=== PATIENT | female | born 1970 | race Caucasian/White ===

== ENCOUNTER 2017-11-12 04:18 | Inpatient (IN) | payer BC, SELFPAY ==
[2017-11-12] MEDS ORDERED: Morphine 4 MG/ML VIAL ONE (05:00)
[2017-11-12] MEDS ORDERED: Ondansetron HCl/PF 4 MG/2 ML Vial ONE (05:00)
[2017-11-12 06:00] VITALS: BMI 38.0
[2017-11-12] MEDS ORDERED: Clindamycin/D5W 600 MG in Premix Bag 1 BAG IVPB SCH (07:00)
[2017-11-12] MEDS ORDERED: Dextrose 5 % And 0.9 % NaCl 1,000 ML IV SCH (07:00)
[2017-11-12] MEDS ORDERED: Acetaminophen 325 MG TAB PO PRN (07:10)
[2017-11-12] MEDS ORDERED: Senokot 8.6 MG TAB PO PRN (07:10)
[2017-11-12] MEDS ORDERED: Ondansetron HCl/PF 4 MG/2 ML Vial IVP PRN (07:10)
[2017-11-12] MEDS ORDERED: Ondansetron ODT 4 MG TAB PO PRN (07:10)
[2017-11-12] MEDS ORDERED: Lidocaine 1% w/Epinephrine 1:100K 20 ML VIAL FS SCH (08:15)
[2017-11-12] MEDS: Saccharomyces boulardii 250 MG CAP PO SCH (08:50)
[2017-11-12] MEDS: Ketorolac Tromethamine 30 MG/ML VIAL IVP PRN ×2 (11:18→17:53)
[2017-11-12] MEDS ORDERED: Mag-Al 1200 mg/1200 mg/30 ML UDCUP PO PRN (12:21)
[2017-11-12] MEDS ORDERED: Calcium Carbonate 500 MG ChewTAB PO PRN (12:21)
[2017-11-12] MEDS ORDERED: Labetalol HCl 100 MG/20 ML VIAL SLOW IVP PRN (12:23)
[2017-11-12] MEDS ORDERED: Vancomycin HCl 1 GM in Premix Bag 1 BAG IVPB SCH (12:30)
--- NOTE | 2017-11-12 12:38 | HP ---
PRIMARY CARE PHYSICIAN: Dr. Laila Barakat in [place]. CHIEF COMPLAINT: Swelling around the chin area of 4 days' duration. HISTORY OF PRESENT ILLNESS: The patient is a 47-year-old female who presented to the emergency room at [facility] with swelling around her chin that has been ongoing for last 4 days a long with redness, warmth and pain. She states that it started after a possible insect bite. The pa in is moderate to severe in intensity, associated with palpation and tubing. She denies any toothach e or any recent dental issues. She felt feverish; however, denies any chills. In the emergency room at [place] her initial vital signs showed temperature 99.1 with a heart rate of 86, blood pressure 153/79 with O2 saturation 99%. Her pain was 10/10 in the emergency room. WBC was 12.7 with 68% neutrophils. She underwent CT maxillofacial with IV contrast that showed evidence of submental and premental cellulitis without any abscess or foreign body. She was transferred to [facility] facility for hospital admission. The patient was evaluated by her primary care physician and was started on Bactrim without any improv ement. The patient also had some nausea and mild generalized headache without any significant photophobia or phonophobia. PAST MEDICAL HISTORY: 1. Mild intermittent asthma. 2. Hiatal hernia. 3. Gastroesophageal reflux disease. PAST SURGICAL HISTORY: Hysterectomy. ALLERGIES: CODEINE and DEMEROL. CURRENT HOME MEDICATIONS: Albuterol inhaler as needed, Protonix 40 mg as needed. SOCIAL HISTORY: She denies any smoking, alcohol or drug use. She currently lives at home with her f aguilar. FAMILY HISTORY: Positive for diabetes. REVIEW OF SYSTEMS: The following complete review of systems was negative, unless otherwise mentioned in the HPI or below: Constitutional: Weight loss or gain, ability to conduct usual activities. Skin: Rash, itching. Eyes: Double vision, pain. ENT/Mouth: Nose bleeding, neck stiffness, pain, tenderness. Cardiovascular: Palpitations, dyspnea on exertion, orthopnea. Respiratory: Shortness of breath, wheezing, cough, hemoptysis, fever or night sweats. Gastrointestinal: Poor appetite, abdominal pain, heartburn, nausea, vomiting, constipation, or diarrhea. Genitourinary: Urgency, frequency, dysuria, nocturia. Musculoskeletal: Pain, swelling. Neurologic/Psychiatric: Anxiety, depression. Allergy/Immunologic: Skin rash, bleeding tendency. PHYSICAL EXAMINATION: VITAL SIGNS: As discussed above. GENERAL: A 47-year-old female in distress due to pain. HEENT: Head; atraumatic, normocephalic, Sclerae are anicteric. Moist mucous membrane, no oral lesio n. There is significant swelling over the submental region with erythema, warmth, and tenderness. N o pus expressible at this time. NECK: Supple, no JVD, no carotid bruit. LUNGS: Clear to auscultation bilaterally, no wheezing, rales or rhonchi. HEART: S1, S2 present. Regular rate and rhythm. No murmur, rubs, or gallops appreciated. ABDOMEN: Soft, nontender, bowel sounds present. EXTREMITIES: No edema or calf tenderness. NEUROLOGIC: Grossly nonfocal, moves all 4 extremities. PSYCHIATRY: Alert, awake, oriented x3. SKIN: Warm and dry. Other findings as discussed above. LYMPH NODES: No palpable lymph nodes in the neck. PERIPHERAL VASCULAR: Radial pulses palpable bilaterally. MUSCULOSKELETAL: No joint swelling or tenderness. LABORATORY: Lab findings as discussed above. Blood cultures were done at [place]. Sodium was 13 8, potassium 3.5 with bicarbonate 26, glucose 116. CT of the maxillofacial as discussed above. Events at [place]; the patient received IV fluids, Zofran, morphine, [place] and clindamycin. IMPRESSION AND PLAN: 1. Submental and premental cellulitis with suspected abscess. 2. Suspected sepsis secondary to #1. 3. Family history of diabetes. 4. Gastroesophageal reflux disease. 5. Mild intermittent asthma. PLAN: The patient will be monitored on the medical floor. We will repeat labs in a.m. Oral Surgery will be consulted. She has not felt significant improvement with clindamycin so far. We will hamilton e antibiotics to vancomycin and Zosyn. We will continue gentle IV hydration while on antibiotics. P ain controlled with IV Toradol and Tylenol. We will also add IV narcotics if needed. Plan of care was discussed with the patient in detail. She stated understanding.
[2017-11-12] MEDS: Sodium Chloride 0.9% 1,000 ML IV SCH (13:28)
[2017-11-12] MEDS: Piperacillin/Tazobactam 3.375 GM in Sodium Chloride 0.9% 100 ML IVPB SCH ×2 (13:29→18:10)
[2017-11-12] MEDS: Vancomycin HCl 1.5 GM in Sodium Chloride 0.9% 250 ML 300 ML IVPB SCH (14:42)
[2017-11-12] MEDS: Ibuprofen 200 MG TAB PO PRN (20:40)
--- NOTE | 2017-11-12 22:14 | CON ---
DATE OF CONSULTATION: 11/12/2017 REASON FOR CONSULTATION: Facial swelling. HISTORY OF PRESENT ILLNESS: This is a 47-year-old female with approximately 4-day long history of pa in and swelling with drainage to her lower lip and chin area. Pain is approximately 6/10 at worst, r adiates to her teeth and neck. She has felt feverish, but no objective temperature measurements. Sh e denies chills, no numbness. She was seen at [facility] and transferred here for admit as well as IV antibiotics and incision and drainage. PAST MEDICAL HISTORY: Asthma, mild intermittent, hiatal hernia, gastroesophageal reflux disease. PAST SURGICAL HISTORY: Hysterectomy. ALLERGIES: CODEINE and DEMEROL. CURRENT HOME MEDICATIONS: Albuterol p.r.n., Protonix 40 mg as needed. SOCIAL HISTORY: She denies alcohol, tobacco, or drug abuse. She works at [employer]. FAMILY HISTORY: Positive for diabetes. REVIEW OF SYSTEMS: She denies chest pain, shortness of breath, no abdominal pain, no changes in visi on. No numbness, no paresthesia, no weakness. No diarrhea, no nausea or vomiting. PHYSICAL EXAMINATION: GENERAL: She is awake, alert, oriented x3. She is in no acute distress. SKIN: She has approximately 4 x 3 cm area of induration with possibly some fluctuance in her lower l ip, chin, extends down into the submental area. There is a good amount of erythema surrounding the i nduration. NECK: She has no cervical submandibular lymphadenopathy. HEENT: Oropharynx is clear. Floor of mouth is soft. There is no elevation. VITAL SIGNS: Blood pressure 127/80, pulse 57, respirations 12, sating 99% on room air, temperature 9 8.2. LABORATORY DATA: The only laboratory data currently have this from [facility] where her white count was 13. ASSESSMENT: This is a 47-year-old female with a chin abscess most likely methicillin-resistant Staph ylococcus aureus. PLAN: We will continue vancomycin and Zosyn per Dr. Su. We will plan for incision and drainage o f abscess at the bedside and will most likely pack wound with daily changes.
--- NOTE | 2017-11-12 22:27 | OP ---
PREOPERATIVE DIAGNOSIS: Chin abscess. POSTOPERATIVE DIAGNOSES: Chin abscess. PROCEDURE PERFORMED: Incision and drainage and packing of chin abscess. COMPLICATIONS: None. DRAINS: None. SPECIMENS: Purulent fluid was sent to microbiology for Gram stain and culture. ANESTHESIA: Local anesthesia at the bedside. BRIEF PATIENT HISTORY AND PROCEDURE IN DETAIL: This is a 47-year-old female with 4-day history of ch in and lip swelling and pain. Site was prepped with Betadine, local anesthetic infiltration with 1% lidocaine, 1:10,000 epinephrine. Incision through the center of the fluctuant area of the mass. Dustin nt dissection with hemostat, irrigation with normal saline. Packing with iodoform gauze 1/2 inch. T he patient tolerated the procedure well.
[2017-11-13] MEDS: Ketorolac Tromethamine 30 MG/ML VIAL IVP PRN ×3 (00:57→20:28)
[2017-11-13] MEDS: Piperacillin/Tazobactam 3.375 GM in Sodium Chloride 0.9% 100 ML IVPB SCH ×4 (00:58→18:32)
[2017-11-13] MEDS: Vancomycin HCl 1.5 GM in Sodium Chloride 0.9% 250 ML 300 ML IVPB SCH ×2 (01:46→13:08)
[2017-11-13] MEDS: Sodium Chloride 0.9% 1,000 ML IV SCH (03:10)
[2017-11-13 05:08] LABS: #Eosinphils 0.2 thou/uL (0.0-0.7); #Lymphocytes 2.4 thou/uL (1.20-3.40); #Monocytes 0.5 thou/uL (0.11-0.59); #Neutrophils 4.6 thou/uL (1.40-6.50); %Basophils 0.4 % (0.0-1.0); %Eosinophils 2.9 % (0.0-10.0); %Lymphocytes 31.3 % (21.0-51.0); %Monocytes 6.4 % (0.0-10.0); %Neutrophils 59.1 % (42.0-75.0); Mean Corpuscular HGB CONC 31.7 g/dL (32.0-36.0); Mean Corpuscular Hemoglobin 28.8 pg (27.0-31.0); Mean Corpuscular Volume 90.7 fL (78.0-98.0); Mean Platelet Volume 7.4 fL (7.4-10.4); Platelet Count 215 thou/uL (130-400); RBC Distribution Width 12.4 % (11.5-14.5); Red Blood Cell (RBC) Count 3.48 mill/uL (4.20-5.40); White Blood Cell (WBC) Count 7.7 thou/uL (4.8-10.8)
[2017-11-13 05:31] LABS: Anion Gap 11 mmol/L (10-20); BUN (Urea Nitrogen) 10 mg/dL (7.0-18.7); Calc. Creatinine Clearance 137 mL/min (70-130); Calcium 8.7 mg/dL (7.8-10.44); Carbon Dioxide 23 mmol/L (22-29); Chloride 110 mmol/L (98-107); Estimated GFR-MDRD 79; Glucose 93 mg/dL (70-105); Potassium 4.5 mmol/L (3.5-5.1); Sodium 139 mmol/L (136-145)
[2017-11-13] MEDS: Ibuprofen 200 MG TAB PO PRN ×2 (07:02→15:34)
[2017-11-13] MEDS: Saccharomyces boulardii 250 MG CAP PO SCH (08:41)
--- NOTE | 2017-11-13 13:19 | PDOC.PN ---
- Subjective Encounter Start Date: 11/13/17 Encounter Start Time: 09:30 Patient seen and examined for facial cellulitis. Has discomfort over the affected site with surrounding induration. No fever/chills/ diarrhea. No overnight events - Objective Resuscitation Status: Resuscitation Status FULL:Full Resuscitation MAR Reviewed: Yes Vital Signs & Weight: Vital Signs (12 hours) Temp Pulse Resp BP Pulse Ox 11/13/17 12:00 97.6 F 76 20 111/76 100 11/13/17 08:00 98.7 F 69 16 96/58 L 98 11/13/17 04:00 97.7 F 74 16 90/51 L 97 Weight Weight 215 lb I&O: 11/12/17 11/13/17 11/14/17 06:59 06:59 06:59 Intake Total 4201 1025 Balance 4201 1025 Result Diagrams: 11/13/17 04:43 11/13/17 04:43 Phys Exam - Physical Examination Constitutional: NAD Respiratory: no wheezing, no rhonchi Cardiovascular: RRR, no rub Gastrointestinal: soft, non-tender, positive bowel sounds Musculoskeletal: no edema Skin: no rash Deviation from normal: dressing over the I&D site with some warmth over the surrounding areas. Dx/Plan - Plan out of bed/ambulate, DVT proph w/SCDs IMPRESSION AND PLAN: 1. Submental and premental cellulitis with suspected abscess s/p I&D 2. Suspected sepsis secondary to #1. 3. Obesity BMI 38.1 4. Gastroesophageal reflux disease. 5. Mild intermittent asthma. PLAN: Cont IV Vancomycin and Zosyn Monitor Vancomycin level Await culture Cont other meds as below Review of Systems - Review of Systems Respiratory: negative: Cough, Dry, Shortness of Breath, Hemoptysis, SOB with Excertion, Pleuritic Pain, Sputum, Wheezing Cardiovascular: negative: chest pain, palpitations, orthopnea, paroxysmal nocturnal dyspnea, edema, light headedness, other - Medications/Allergies Allergies/Adverse Reactions: Allergies Allergy/AdvReac Type Severity Reaction Status Date / Time codeine Allergy Verified 11/12/17 07:00 meperidine [From Demerol] Allergy Verified 11/12/17 07:00 Medications: Current Medications Acetaminophen (Tylenol) 650 mg PO Q4H PRN PRN Reason: Headache/Fever or Pain Al Hydroxide/Mg Hydroxide (Maalox) 30 ml PO Q6H PRN PRN Reason: Heartburn or Indigestion Calcium Carbonate (Tums) 1,000 mg PO Q4H PRN PRN Reason: Heartburn or Indigestion Piperacillin Sod/Tazobactam (Sod 3.375 gm/ Sodium Chloride) 100 mls @ 200 mls/ hr IVPB Q6H [facility] Last Admin: 11/13/17 12:15 Dose: 100 mls Vancomycin HCl 1.5 gm/ Sodium (Chloride) 300 mls @ 200 mls/hr IVPB 0200,1400 [facility] Last Admin: 11/13/17 13:08 Dose: 300 mls Ibuprofen (Motrin) 400 mg PO Q6H PRN PRN Reason: Pain Last Admin: 11/13/17 07:02 Dose: 400 mg Ketorolac Tromethamine (Toradol) 15 mg IVP Q6H PRN PRN Reason: Pain Stop: 11/17/17 07:11 Last Admin: 11/13/17 11:15 Dose: 15 mg Labetalol HCl (Normodyne) 10 mg SLOW IVP Q4H PRN PRN Reason: Systolic BP > 180 Miscellaneous Medication (Pharmacy To Dose) 0 each IVPB ASDIR PRN PRN Reason: Pharmacy to Dose [facility] Ondansetron HCl (Zofran Odt) 4 mg PO Q6H PRN PRN Reason: Nausea/Vomiting Ondansetron HCl (Zofran) 4 mg IVP Q6H PRN PRN Reason: Nausea/Vomiting Last Admin: 11/12/17 11:28 Dose: 4 mg Pantoprazole Sodium (Protonix) 40 mg PO BID [facility] Last Admin: 11/13/17 08:41 Dose: 40 mg Saccharomyces Boulardii (Florastor) 250 mg PO DAILY [facility] Last Admin: 11/13/17 08:41 Dose: 250 mg Senna (Senokot) 2 tab PO HSPRN PRN PRN Reason: Constipation
[2017-11-14] MEDS: Ibuprofen 200 MG TAB PO PRN ×2 (02:37→19:06)
[2017-11-14] MEDS: Piperacillin/Tazobactam 3.375 GM in Sodium Chloride 0.9% 100 ML IVPB SCH ×4 (02:37→21:01)
[2017-11-14] MEDS: Vancomycin HCl 1.5 GM in Sodium Chloride 0.9% 250 ML 300 ML IVPB SCH ×2 (03:15→17:18)
[2017-11-14] MEDS: Saccharomyces boulardii 250 MG CAP PO SCH (08:40)
[2017-11-14] MEDS: Ketorolac Tromethamine 30 MG/ML VIAL IVP PRN ×2 (11:03→21:15)
--- NOTE | 2017-11-14 12:37 | PRG ---
DATE OF POSTOPERATIVE VISIT: 11/13/2017 at 5:00 p.m. SUBJECTIVE: The patient is postoperative day #1 status post I&D of submental chin abscess. No acute 24 hour events. The patient says she is felling little bit better. OBJECTIVE: VITAL SIGNS: The patient's vital signs have been stable. She has been afebrile. Current vital sign s are temperature 98.1, pulse 70, respirations 20, satting 96% on room air, blood pressure is 119/74. GENERAL: She is awake, alert, and oriented x3. HEENT: Her chin incision is clean, dry, and she has no current purulent discharge from the wound. T he gauze packing was removed. She does still have a moderate amount of induration surrounding the wo und that tracks into the submental area. Her teeth are within normal limits. There is no cavities. Her opening is good. There is no floor of the mouth elevation. No tenderness to palpation of the t eeth. No difficulty swallowing. LABORATORY DATA: White blood cell count of 7.7 today. Microbiology: Patient has grown methicillin- resistant Staph aureus with sensitivities shown and resistant to multiple drugs sensitive to cl indamycin, gentamicin, and linezolid. ASSESSMENT: Patient is improving status post I&D of a chin submental abscess, still has continued ce llulitis. PLAN: Continue IV antibiotics per primary team. We will continue to follow.
--- NOTE | 2017-11-14 21:47 | PDOC.PN ---
- Subjective Encounter Start Date: 11/14/17 Encounter Start Time: 13:00 Patient seen and examined for cellulitis. No new complaints. No overnight events - Objective Resuscitation Status: Resuscitation Status FULL:Full Resuscitation MAR Reviewed: Yes Vital Signs & Weight: Vital Signs (12 hours) Temp Pulse Resp BP Pulse Ox 11/14/17 20:00 97.6 F 77 18 126/67 99 11/14/17 15:44 98.1 F 63 16 138/81 94 L 11/14/17 11:55 97.3 F L 65 16 145/81 H 100 Weight Weight 215 lb I&O: 11/13/17 11/14/17 11/15/17 06:59 06:59 06:59 Intake Total 4201 2335 Balance 4201 2335 Result Diagrams: 11/13/17 04:43 11/15/17 04:13 Phys Exam - Physical Examination Constitutional: NAD Neck: no JVD erythema improving, scanty drainage Respiratory: no wheezing, no rhonchi Cardiovascular: RRR, no rub Gastrointestinal: soft, non-tender, positive bowel sounds Musculoskeletal: no edema Dx/Plan - Plan DVT proph w/SCDs IMPRESSION AND PLAN: 1. Submental and premental cellulitis with suspected abscess s/p I&D - on Vans/ Zosyn - MRSA + 2. Suspected sepsis secondary to #1. 3. Obesity BMI 38.1 4. Gastroesophageal reflux disease. 5. Mild intermittent asthma. PLAN: Cont IV Vancomycin DC Zosyn Monitor Vancomycin level Cont other meds as below Review of Systems - Review of Systems Respiratory: negative: Cough, Dry, Shortness of Breath, Hemoptysis, SOB with Excertion, Pleuritic Pain, Sputum, Wheezing Cardiovascular: negative: chest pain, palpitations, orthopnea, paroxysmal nocturnal dyspnea, edema, light headedness, other - Medications/Allergies Allergies/Adverse Reactions: Allergies Allergy/AdvReac Type Severity Reaction Status Date / Time codeine Allergy Verified 11/12/17 07:00 meperidine [From Demerol] Allergy Verified 11/12/17 07:00 Medications: Current Medications Acetaminophen (Tylenol) 650 mg PO Q4H PRN PRN Reason: Headache/Fever or Pain Al Hydroxide/Mg Hydroxide (Maalox) 30 ml PO Q6H PRN PRN Reason: Heartburn or Indigestion Calcium Carbonate (Tums) 1,000 mg PO Q4H PRN PRN Reason: Heartburn or Indigestion Vancomycin HCl 1.5 gm/ Sodium (Chloride) 300 mls @ 200 mls/hr IVPB 0200,1400 [facility] Last Admin: 11/14/17 17:18 Dose: 300 mls Ibuprofen (Motrin) 400 mg PO Q6H PRN PRN Reason: Pain Last Admin: 11/14/17 19:06 Dose: 400 mg Ketorolac Tromethamine (Toradol) 15 mg IVP Q6H PRN PRN Reason: Pain Stop: 11/17/17 07:11 Last Admin: 11/14/17 11:03 Dose: 15 mg Labetalol HCl (Normodyne) 10 mg SLOW IVP Q4H PRN PRN Reason: Systolic BP > 180 Miscellaneous Medication (Pharmacy To Dose) 0 each IVPB ASDIR PRN PRN Reason: Pharmacy to Dose [facility] Ondansetron HCl (Zofran Odt) 4 mg PO Q6H PRN PRN Reason: Nausea/Vomiting Ondansetron HCl (Zofran) 4 mg IVP Q6H PRN PRN Reason: Nausea/Vomiting Last Admin: 11/12/17 11:28 Dose: 4 mg Pantoprazole Sodium (Protonix) 40 mg PO BID [facility] Last Admin: 11/14/17 21:01 Dose: 40 mg Saccharomyces Boulardii (Florastor) 250 mg PO DAILY [facility] Last Admin: 11/14/17 08:40 Dose: 250 mg Senna (Senokot) 2 tab PO HSPRN PRN PRN Reason: Constipation
[2017-11-15] MEDS ORDERED: Vancomycin HCl 1.5 GM in Sodium Chloride 0.9% 250 ML 300 ML IVPB SCH (05:00)
[2017-11-15 05:29] LABS: Anion Gap 11 mmol/L (10-20); BUN (Urea Nitrogen) 11 mg/dL (7.0-18.7); Calc. Creatinine Clearance 141 mL/min (70-130); Calcium 8.9 mg/dL (7.8-10.44); Carbon Dioxide 27 mmol/L (22-29); Chloride 107 mmol/L (98-107); Estimated GFR-MDRD 82; Glucose 96 mg/dL (70-105); Potassium 4.1 mmol/L (3.5-5.1); Sodium 141 mmol/L (136-145)
[2017-11-15] MEDS: Saccharomyces boulardii 250 MG CAP PO SCH (09:39)
[2017-11-15] MEDS: Ibuprofen 200 MG TAB PO PRN ×2 (10:09→21:09)
[2017-11-15 16:12] LABS: Vancomycin, Trough 19.1 ug/mL
[2017-11-15] MEDS ORDERED: Sulfameth/Trimethoprim DS 800-160mg TAB PO SCH (16:45)
--- NOTE | 2017-11-15 23:44 | PDOC.PN ---
- Subjective Encounter Start Date: 11/15/17 Encounter Start Time: 14:00 Patient seen and examined for Cellulitis. No new complaints. No overnight events - Objective Resuscitation Status: Resuscitation Status FULL:Full Resuscitation MAR Reviewed: Yes Vital Signs & Weight: Vital Signs (12 hours) Temp Pulse Resp BP Pulse Ox 11/15/17 20:00 97.5 F L 64 16 132/88 98 11/15/17 17:05 97.7 F 66 18 123/86 99 Weight Weight 215 lb I&O: 11/14/17 11/15/17 11/16/17 06:59 06:59 06:59 Intake Total 2335 1565 Balance 2335 1565 Result Diagrams: 11/13/17 04:43 11/15/17 04:13 Phys Exam - Physical Examination Constitutional: NAD Respiratory: no wheezing, no rhonchi Cardiovascular: RRR, no rub Gastrointestinal: soft, non-tender, positive bowel sounds Musculoskeletal: no edema Neurological: moves all 4 limbs Dx/Plan - Plan DVT proph w/SCDs IMPRESSION AND PLAN: 1. Submental and premental cellulitis with suspected abscess s/p I&D - MRSA + 2. Suspected sepsis secondary to #1. 3. Obesity BMI 38.1 4. Gastroesophageal reflux disease. 5. Mild intermittent asthma. PLAN: Change Atbx to Bactrim this evening DC in AM if Patient cont to improve Cont other meds as below Review of Systems - Review of Systems Respiratory: negative: Cough, Dry, Shortness of Breath, Hemoptysis, SOB with Excertion, Pleuritic Pain, Sputum, Wheezing Cardiovascular: negative: chest pain, palpitations, orthopnea, paroxysmal nocturnal dyspnea, edema, light headedness, other - Medications/Allergies Allergies/Adverse Reactions: Allergies Allergy/AdvReac Type Severity Reaction Status Date / Time codeine Allergy Verified 11/12/17 07:00 meperidine [From Demerol] Allergy Verified 11/12/17 07:00 Medications: Current Medications Acetaminophen (Tylenol) 650 mg PO Q4H PRN PRN Reason: Headache/Fever or Pain Al Hydroxide/Mg Hydroxide (Maalox) 30 ml PO Q6H PRN PRN Reason: Heartburn or Indigestion Calcium Carbonate (Tums) 1,000 mg PO Q4H PRN PRN Reason: Heartburn or Indigestion Ibuprofen (Motrin) 400 mg PO Q6H PRN PRN Reason: Pain Last Admin: 11/15/17 21:09 Dose: 400 mg Labetalol HCl (Normodyne) 10 mg SLOW IVP Q4H PRN PRN Reason: Systolic BP > 180 Miscellaneous Medication (Pharmacy To Dose) 0 each IVPB ASDIR PRN PRN Reason: Pharmacy to Dose [facility] Ondansetron HCl (Zofran Odt) 4 mg PO Q6H PRN PRN Reason: Nausea/Vomiting Ondansetron HCl (Zofran) 4 mg IVP Q6H PRN PRN Reason: Nausea/Vomiting Last Admin: 11/12/17 11:28 Dose: 4 mg Pantoprazole Sodium (Protonix) 40 mg PO BID [facility] Last Admin: 11/15/17 21:06 Dose: 40 mg Saccharomyces Boulardii (Florastor) 250 mg PO DAILY [facility] Last Admin: 11/15/17 09:39 Dose: 250 mg Senna (Senokot) 2 tab PO HSPRN PRN PRN Reason: Constipation Trimethoprim/Sulfamethoxazole (Bactrim Ds) 1 tab PO BID [facility]
[2017-11-16] MEDS ORDERED: Sulfameth/Trimethoprim DS 800-160mg TAB PO SCH (09:00)
[2017-11-16] MEDS: Ibuprofen 200 MG TAB PO PRN (09:02)
[2017-11-16] MEDS: Saccharomyces boulardii 250 MG CAP PO SCH (09:02)
[2017-11-16 12:23] VITALS: BP 114/82; TEMP 98.2
--- NOTE | 2017-11-16 17:32 | DIS ---
DATE OF DISCHARGE: 11/16/2017 DISCHARGE DISPOSITION: Home. FOLLOWUP: Follow up with primary care physician in 1 week. Follow up with maxillofacial surgeon, Dr Elena Restrepo in 2-3 days. The patient was advised to call the office for appointment. ALLERGIES: The patient is allergic to CODEINE and DEMEROL. BRIEF HOSPITAL COURSE: Patient is a 47-year-old female who presented to the emergency room at [facility] with swelling around her chin of 4 days' duration along with redness, warmth a nd pain. Her workup was consistent with submental cellulitis/abscess requiring incision and drainage by Dr. Restrepo (maxillofacial surgeon. She was started on vancomycin and Zosyn. She has been start ed on Bactrim. Cellulitis has significantly improved. She has been cleared by consultants for disch arge. FINAL DIAGNOSES: 1. Submental/premental cellulitis with abscess, status post incision and drainage. 2. Suspected sepsis secondary to #1. 3. Diabetes mellitus type 2. 4. Gastroesophageal reflux disease. 5. Mild intermittent asthma. DISCHARGE MEDICATIONS: 1. Bactrim 1 tablet twice a day for next 10 days. 2. Protonix 40 mg b.i.d. Plan of care was discussed with the patient in detail. She stated understanding.
== END 2017-11-16 15:32 | disposition home or self-care (01) | DRG 872 ==
LOC: ERS 04:18 → 2SE 05:29 → T4-A 11-15 00:16
PROVIDERS: ADMIT Hospitalist; ATTEND Hospitalist
PROC: 0H91XZZ Drainage of Face Skin, External Approach (ICD-10-PCS; principal; 2017-11-12)
DX: A41.9 Sepsis, unspecified organism (principal); L03.211 Cellulitis of face; L02.01 Cutaneous abscess of face; B96.89 Other specified bacterial agents as the cause of diseases classified elsewhere; E11.9 Type 2 diabetes mellitus without complications; K21.9 Gastro-esophageal reflux disease without esophagitis; J45.20 Mild intermittent asthma, uncomplicated; B95.62 Methicillin resistant Staphylococcus aureus infection as the cause of diseases classified elsewhere; E66.9 Obesity, unspecified; Z68.38 Body mass index [BMI] 38.0-38.9, adult; Z83.3 Family history of diabetes mellitus
CPT/HCPCS: 36415; 80048; 80202; 85025; 87070; 87077; 87186; 87205; 96374; 96375; J1885; J2001; J2270; J2405; J2543; J3370; J3490; J7050